=== PATIENT | female | born 1950 | race Two or more races ===

== ENCOUNTER 2018-02-11 16:28 | Emergency (ER) | payer MEDICARE, OTHER ==
[~2018-02-11] VITALS: Ht 162.6 cm; Wt 60.0 kg
[2018-02-11 17:24] VITALS: BP 166/65
[2018-02-11] MEDS ORDERED: ACETAMINOPHEN 650MG/20.3ML UDC PO ONE (17:45)
[2018-02-11] MEDS ORDERED: TETANUS, DIPHTHERIA, PERTUSSIS VAC/PF 0.5ML (>7YR OLD) IM ONE (17:45)
[2018-02-11 19:57] LABS: BASOPHILS % 0.5 % (0.0-2.0); EOSINOPHILS % 2.1 % (0.0-5.0); HEMATOCRIT. 42.3 % (36.0-48.0); HEMOGLOBIN. 14.1 g/dL (12.0-16.0); MEAN CORPUSCULAR HEMOGLOBIN 30.4 pg (28.0-32.0); MEAN CORPUSCULAR VOLUME 91.2 fL (81.0-99.0); MONOCYTES % 9.1 % (2.0-8.0); NEUTROPHILS % 61.3 % (40.0-76.0); PLATELET 263 x1000/uL (130-400); RED BLOOD CELL COUNT 4.64 mill/uL (4.2-5.4); RED CELL DISTRIBUTION WIDTH 14.3 % (11.6-14.6)
[2018-02-11 20:00] LABS: CHLORIDE 104 mEq/L (98-107)
[2018-02-11 20:01] LABS: CLARITY URINE CLEAR (CLEAR); COLOR URINE YELLOW (YELLOW); KETONES URINE NEGATIVE (NEGATIVE); LEUKOCYTE ESTERASE URINE 1+ (NEGATIVE); NITRITE URINE NEGATIVE (NEGATIVE); OCCULT BLOOD URINE NEGATIVE (NEGATIVE); PH URINE 5.5 (4.5-8.0); PROTEIN URINE NEGATIVE (NEGATIVE); SPECIFIC GRAVITY URINE 1.013 (1.005-1.030); UROBILINOGEN URINE 0.2 E.U./dL (0.2-1.0)
[2018-02-11 20:02] LABS: INR 0.9; PROTHROMBIN TIME 9.4 sec (9.1-11.1)
== END 2018-02-12 00:26 | disposition short-term general hospital (02) ==
LOC: ER 16:28 → CANBEDREQ 02-12 00:55
DX: S00.03XA Contusion of scalp, initial encounter (principal); G93.9 Disorder of brain, unspecified; E11.9 Type 2 diabetes mellitus without complications; V09.9XXA Pedestrian injured in unspecified transport accident, initial encounter; Y93.89 Activity, other specified; Y92.89 Other specified places as the place of occurrence of the external cause; Y99.8 Other external cause status
CPT/HCPCS: 36415; 71046; 72100; 73080; 80048; 90471; 90715; 93005; 99285